=== PATIENT | female | born 1985 | race Caucasian/White ===

== ENCOUNTER 2017-04-21 16:57 | Inpatient (IN) | payer BC ==
[2017-04-21] MEDS ORDERED: AMPICILLIN - 2 GM in SODIUM CHLORIDE 100 ML IVPB ONE (18:00)
--- NOTE | 2017-04-21 18:22 | HP ---
Past Medical History - Admission History of Present Illness: 31 yo @ 39 1/7 wks by first trimester ultrasound, EDC 04/27/2017 complicated by: 1. GBS positive - no allergies 2. Normal sequential screen Patient reports hx/o contractions which have increased in intensity and frequency. She was examined and found to be 4 cm. She reports movement and denies leakage of fluid or vaginal bleeding. History Source: Patient Limitations to Obtaining History: No Limitations - Past Medical History Cardiovascular: No: HTN Pulmonary: No: Asthma ...: 2 ...Para: 1 Heme/Onc: No: Anemia - Past Surgical History Past Surgical History: Yes: None Hx Myomectomy: No Hx Transabdominal Cerclage: No - Smoking History Smoking history: Never smoked Have you smoked in the past 12 months: No - Alcohol/Substance Use Hx Alcohol Use: No - Social History History of Recent Travel: No Home Medications - Allergies Allergies/Adverse Reactions: Allergies Allergy/AdvReac Type Severity Reaction Status Date / Time No Known Drug Allergies Allergy Verified 04/21/17 17:56 - Home Medications Home Medications: Ambulatory Orders NK [No Known Home Medication] 04/21/17 Family Disease History - Family Disease History Family History: Denies Review of Systems - Review of Systems Constitutional: reports: No Symptoms Neck: reports: No Symptoms Cardiovascular: reports: No Symptoms Respiratory: reports: No Symptoms Gastrointestinal: reports: No Symptoms Genitourinary: reports: No Symptoms Musculoskeletal: reports: No Symptoms Integumentary: reports: No Symptoms Endocrine: reports: No Symptoms Hematology/Lymphatic: reports: No Symptoms Psychiatric: reports: No Symptoms Physical Exam - Maternity Constitutional: Yes: Well Nourished, No Distress, Calm Neck: Yes: Supple Cardiovascular: Yes: Regular Rate and Rhythm Lungs: Clear to auscultation - Abdominal Exam/OB Fundal Height: 40 Number of Fetuses: Single Presentation: Vertex Contractions: Yes Regularity: Regular Intensity: Moderate Monitor Mode: External Category: I Accelerations: Non-Uniform Decelerations: None - Vaginal Exam/OB Dilatation (cm): 4 Effacement (%): 80 Station: -3 - Labs Lab Results: PNL B positive, antibody negative, RPR NR, HIV negative, HBS Ag negative, Hep C negative, Hb Misa AA, GBS positive, sequential screen negative Hemorrhage Risk Assessment - Risk Factors Medium Risk Factors: Yes: None High Risk Factors: Yes: None Risk Score: 1 Risk Level: Medium Risk Assessment/Plan 31 yo @ 39 1/7 wks active labor 1. Admit to L&D, Consents reviewed and signed 2. Routine labs collected and sent 3. GBS positive, will start ampicillin per protocol 4. Category I FHT 5. Will offer pain medication upon patient's request 6. Plan for active management of labor
[2017-04-21 18:43] VITALS: BMI 29.9
[2017-04-21] MEDS ORDERED: TUBERCULIN PPD 5 TU/0.1ML SYRINGE (IN PATIENT USE ONLY) ID ONE (19:00)
[2017-04-21] MEDS ORDERED: LACTATED RINGERS SOLUTION 1,000 ML IV SCH (19:00)
[2017-04-21 19:36] LABS: BASOPHIL 0.2 % (0-2.0); EOSINOPHIL 0.9 % (0-4.5); MCH 26.2 pg (25.7-33.7); MCHC 32.4 g/dl (32.0-36.0); MEAN CELL VOLUME 80.9 fl (80-96); MEAN PLT VOLUME 9.1 fl (7.5-11.1); NEUTROPHILS 73.5 % (42.8-82.8); PLATELET COUNT 272 K/MM3 (134-434); RDW 16.1 % (11.6-15.6); WHITE BLOOD COUNT 11.8 K/mm3 (4.0-10.0)
[2017-04-21 19:39] LABS: INR 0.99 (0.82-1.09); PROTHROMBIN TIME (PATIENT) 10.9 SEC (9.98-11.88)
[2017-04-21 19:42] LABS: ACTIVATED PTT 24.5 SECONDS (26.9-34.4)
[2017-04-21 20:08] LABS: ANION GAP 12 (8-16); CO2 23 mmol/L (21-32); CREATININE 0.6 mg/dL (0.55-1.02); GLUCOSE,RANDOM 87 mg/dL (74-106)
[2017-04-21 21:44] LABS: CALCIUM 9.1 mg/dL (8.5-10.1)
[2017-04-21] MEDS: AMPICILLIN - 1 GM in SODIUM CHLORIDE 100 ML IVPB SCH (22:00)
--- NOTE | 2017-04-21 23:03 | PN ---
Ante-Partal Exam - Subjective Subjective: Patient reports increased pain with contractions, declines medication Vital Signs: Vital Signs Temperature 98.3 F 04/21/17 21:36 Pulse Rate 76 04/21/17 21:36 Respiratory Rate 20 04/21/17 21:36 Blood Pressure 142/64 04/21/17 21:36 O2 Sat by Pulse Oximetry (%) Bleeding: No Headache: No Visual changes: No Right upper quadrant pain: No - Contractions Contractions: Yes Regularity: Regular Intensity: Mild/Mod Monitor Mode: External - Exam during Labor Heart Rate: 135 Variability: Moderate Category: I Monitor Accelerations: Absent Monitor Decelerations: None Exam: Vaginal Dilatation (cm): 5 Effacement (%): 90 Amniotic Membrane Status: Ruptured Amniotic Fluid: Clear Station: -2 - Intrapartum Hemorrhage Risk Medium Risk Factors: None High Risk Factors: None Risk Score: 0 Risk Level: Low Risk - Assessment/Plan Assessment/Plan: 31 yo active labor 1. Good cervical change, AROM performed, clear fluid 2. GBS positive, on ampicillin 3. Category I FHT 4. Will offer pain medication upon patient request 5. Will proceed with expectant management
[2017-04-21] MEDS ORDERED: BUTORPHANOL TARTRATE 1 MG/ML VIAL IVPUSH ONE (23:23)
[2017-04-21] MEDS ORDERED: PROMETHAZINE HCL 25 MG/1 ML VIAL IVPUSH ONE (23:23)
--- NOTE | 2017-04-22 00:18 | PN ---
Ante-Partal Exam - Subjective Subjective: Patient reports increased pressure Vital Signs: Vital Signs Temperature 98.3 F 04/21/17 21:36 Pulse Rate 82 04/21/17 23:00 Respiratory Rate 20 04/21/17 23:00 Blood Pressure 136/80 04/21/17 23:00 O2 Sat by Pulse Oximetry (%) Bleeding: No Headache: No Visual changes: No Right upper quadrant pain: No - Contractions Contractions: Yes Regularity: Regular Intensity: Mod/Strong Monitor Mode: External - Exam during Labor Heart Rate: 125 Variability: Moderate Category: I Monitor Accelerations: Present Monitor Decelerations: None Exam: Vaginal Dilatation (cm): 9 Effacement (%): 100 Amniotic Membrane Status: Ruptured Presentation: Vertex Station: 0 - Intrapartum Hemorrhage Risk Medium Risk Factors: None High Risk Factors: None Risk Score: 0 Risk Level: Low Risk - Assessment/Plan Assessment/Plan: 31 yo active labor 1. Good cervical change 2. Category I FHT 3. Good pain control with IV pain medication 4. Will continue expectant management, anticipate vaginal delivery
[2017-04-22] MEDS: AMPICILLIN - 1 GM in SODIUM CHLORIDE 100 ML IVPB SCH (01:00)
[2017-04-22] MEDS: OXYTOCIN 20 UNITS in 0.9% NS 1,000 ML IV SCH (01:30)
[2017-04-22] MEDS ORDERED: ACETAMINOPHEN 325 MG TABLET (FP) PO PRN (01:45)
[2017-04-22] MEDS ORDERED: BISACODYL 10 MG SUPP.RECT RC PRN (01:45)
[2017-04-22] MEDS ORDERED: BENZOCAINE 20% 57 GM BOTTLE TP PRN (01:45)
[2017-04-22] MEDS ORDERED: METHYLERGONOVINE MALEATE 0.2 MG/1 ML AMP IM PRN (01:45)
[2017-04-22] MEDS ORDERED: WITCH HAZEL 50% (TUCKS) 40 PAD/JAR PAD TP PRN (01:45)
[2017-04-22] MEDS ORDERED: BENZOCAINE 28 GM HEMORRHOIDAL OINTMENT TP PRN (01:45)
--- NOTE | 2017-04-22 01:45 | PN ---
Delivery - Delivery Vaginal Delivery: No Problems Type of Anesthesia: Local Episiotomy/Laceration: 1st degree EBL (cc): 300 Delivery, Single - Stages of Labor Date 1st Stage Initiatied: 04/21/17 Time 1st Stage Initiated: 10:00 Date 2nd Stage Initiated: 04/22/17 Time 2nd Stage Initiated: 00:45 Date of Delivery: 04/22/17 Time of Delivery: 01:19 Date Placenta Delivered: 04/22/17 Time Placenta Delivered: 01:30 Placenta: Yes: Spontaneous - Condition of Ambulatory Technologist/Host/Hostess Ground Present: No Gender: Female Position: OA Total Hours ROM (Hrs/Mins): 2hr30m - 1 Minute Total Score: 9 5 Minutes Total Score: 9 Remarks - Remarks Remarks: Patient progressed to fully dilated and at 0119 via delivered a viable female infant in direct OA position, APGARs 9,9. Weight and length unknown at this time. Head delivered spontaneously followed by shoulders and body without difficulty. Infant with spontaneous cry and placed on mother's abdomen. Nose and mouth was bulb suctioned. Cord was clamped and cut. Perineum and vagina examined, a first degree laceration was noted and repaired in the usual fashion. Placenta was delivered spontaneously and intact. 20 units of pitocin in 1 L IVF was given. All counts correct x 2. Mother and infant stable in LDR. EBL 300cc.
[2017-04-22] MEDS: IBUPROFEN 600 MG TABLET (FP) PO PRN ×2 (07:58→13:55)
--- NOTE | 2017-04-22 10:00 | DS ---
Physical Exam-PEDIATRICIAN ACTIVE PRACTICE Vital Signs: Vital Signs Temperature 99.6 F 04/22/17 08:50 Pulse Rate 72 04/22/17 08:50 Respiratory Rate 18 04/22/17 08:50 Blood Pressure 113/69 04/22/17 08:50 O2 Sat by Pulse Oximetry (%) Labs: CBC, BMP 04/21/17 18:40 04/21/17 18:40 Delivery - Delivery Vaginal Delivery: No Problems Type of Anesthesia: Local Episiotomy/Laceration: 1st degree EBL (cc): 300 Delivery, Single - Stages of Labor Date 1st Stage Initiatied: 04/21/17 Time 1st Stage Initiated: 10:00 Date 2nd Stage Initiated: 04/22/17 Time 2nd Stage Initiated: 00:45 Date of Delivery: 04/22/17 Time of Delivery: 01:19 Time Placenta Delivered: 01:30 Placenta: Yes: Spontaneous - Condition of Infant Metal Miner/Shellfish Farming Supervisor Present: No Infant Gender: Female Weight: 7 lb 5 oz Position: OA Total Hours ROM (Hrs/Mins): 2hr30m - 1 Minute Total Score: 9 5 Minutes Total Score: 9 - [place] Feeding Plan Initial Plan: Exclusive throughout hospitalization Discharge Summary Reason For Visit: LABOR Procedures: Principal: Vaginal delivery Hospital Course: patient s/p Remained afebrile, vital signs stable, meeting all criteria for discharge home PPD # 2 - Home Medications Comprehensive Discharge Medication List: Ambulatory Orders NK [No Known Home Medication] 04/21/17
[2017-04-23 07:51] LABS: BASOPHIL 0.4 % (0-2.0); EOSINOPHIL 1.6 % (0-4.5); MCHC 32.1 g/dl (32.0-36.0); MEAN CELL VOLUME 80.9 fl (80-96); MEAN PLT VOLUME 8.6 fl (7.5-11.1); NEUTROPHILS 63.3 % (42.8-82.8); PLATELET COUNT 213 K/MM3 (134-434); RDW 16.1 % (11.6-15.6); WHITE BLOOD COUNT 11.3 K/mm3 (4.0-10.0)
[2017-04-23] MEDS: IBUPROFEN 600 MG TABLET (FP) PO PRN (12:44)
--- NOTE | 2017-04-23 14:36 | PN ---
Progress Note (short form) - Note Progress Note: ppd 1 doing well, no excess vaginal bleeding CBC, BMP 04/23/17 07:24 04/21/17 18:40 Last Vital Signs Temp Pulse Resp BP Pulse Ox 98.0 F 82 20 130/88 04/23/17 10:00 04/23/17 10:00 04/23/17 10:00 04/23/17 10:00 abdomen soft, non tender, no cva uterus firm lochia mild no calf tenderness plan ambulate ,plan for d/c home in am
[2017-04-23] MEDS: OXYTOCIN 20 UNITS in 0.9% NS 1,000 ML IV SCH (17:07)
[2017-04-23] MEDS ORDERED: SENNOSIDES/DOCUSATE COMBO (SENNA PLUS) TABLET (UD) PO PRN (22:00)
[2017-04-24 11:04] VITALS: BP 129/68; PULSE 80; TEMP 98
--- NOTE | 2017-04-24 11:58 | DS ---
Physical Exam-ASSEMBLER GARMENT FORM Vital Signs: Vital Signs Temperature 98.0 F 04/24/17 10:00 Pulse Rate 80 04/24/17 10:00 Respiratory Rate 20 04/24/17 10:00 Blood Pressure 129/68 04/24/17 10:00 O2 Sat by Pulse Oximetry (%) Constitutional: Yes: Well Nourished, No Distress, Calm Eyes: Yes: WNL, Conjunctiva Clear HENT: Yes: WNL, Atraumatic, Normocephalic Neck: Yes: WNL, Supple, Trachea Midline Cardiovascular: Yes: WNL, Regular Rate and Rhythm Respiratory: Yes: WNL, Regular, CTA Bilaterally Gastrointestinal: Yes: WNL, Normal Bowel Sounds, Soft ...Rectal Exam: Yes: Deferred Renal/: Yes: WNL Internal Exam Deferred: Yes ....Post : Yes: Uterus firm, Uterus non-tender, Slight lochia rubra Breast(s): Yes: WNL Musculoskeletal: Yes: WNL Extremities: Yes: WNL Edema: Yes Edema: LLE: Trace, RLE: Trace Integumentary: Yes: WNL Neurological: Yes: WNL, Alert, Oriented ...Motor Strength: WNL Psychiatric: Yes: WNL, Alert, Oriented Labs: CBC, BMP 04/23/17 07:24 04/21/17 18:40 Delivery - Delivery Vaginal Delivery: No Problems, Spontaneous Type of Anesthesia: Local Episiotomy/Laceration: 1st degree EBL (cc): 300 Delivery, Single - Stages of Labor Date 1st Stage Initiatied: 04/21/17 Time 1st Stage Initiated: 10:00 Date 2nd Stage Initiated: 04/22/17 Time 2nd Stage Initiated: 00:45 Date of Delivery: 04/22/17 Time of Delivery: 01:19 Time Placenta Delivered: 01:30 Placenta: Yes: Spontaneous - Condition of Livestock Producer/Rail Layer Present: No Gender: Female Weight: 3.317 kg Position: OA Total Hours ROM (Hrs/Mins): 2hr30m - 1 Minute Total Score: 9 5 Minutes Total Score: 9 - Feeding Plan Initial Plan: Exclusive throughout hospitalization Discharge Summary Reason For Visit: LABOR Spontaneous labor at term Procedures: Principal: Hospital Course: Normal recovery Anemia, Blood loss Condition: Good - Instructions Diet, Activity, Other Instructions: call and schedule appointment for exam 4 weeks.if severe bleeding pain or fever call md Referrals: Zurdo Marie MD [Staff Physician] - Disposition: HOME - Home Medications Comprehensive Discharge Medication List: Ambulatory Orders NK [No Known Home Medication] 04/21/17
[2017-04-24] MEDS: OXYTOCIN 20 UNITS in 0.9% NS 1,000 ML IV SCH (12:38)
== END 2017-04-24 11:50 | disposition home or self-care (01) | DRG 775 ==
LOC: JDEL 16:57 → JLDR 17:40 → J3W 04-22 03:16
PROVIDERS: ADMIT Obstetrics & Gynecology; ATTEND Obstetrics & Gynecology
PROC: 10E0XZZ Delivery of Products of Conception, External Approach (ICD-10-PCS; principal; 2017-04-21)
PROC: 0HQ9XZZ Repair Perineum Skin, External Approach (ICD-10-PCS; 2017-04-21)
DX: O99.824 Streptococcus B carrier state complicating childbirth (principal); O70.0 First degree perineal laceration during delivery; Z37.0 Single live birth; O26.893 Other specified pregnancy related conditions, third trimester; J45.909 Unspecified asthma, uncomplicated; Z3A.39 39 weeks gestation of pregnancy
CPT/HCPCS: 36415; 59409; 80048; 85025; 85610; 85730; 86593; 86850; 86900; 86901